=== PATIENT | female | born 1955 | race Two or more races ===

== ENCOUNTER → 2025-02-11 | Outpatient (CLI) | payer MEDICARE, SELFPAY ==
--- NOTE | 2025-02-11 08:45 | XR_ITS ---
Examination: Screening digital mammography, bilateral Computer aided detection 3-D breast Tomosynthesis, bilateral Date and time of exam: February 11, 2025, 0823 hours, compared to mammograms dating to June 26, 2021 Indication: Screening Technique: Nonmagnified MLO, CC views of the breasts to been obtained, reconstructed from 3-D Tomosynthesis images. R2 computer aided detection program utilized for evaluation of suspicious masses and/or abnormal calcifications. 3-D Tomosynthesis images obtained. Findings: The breasts are heterogeneously dense, which may obscure small masses The implants appear intact Grouped segmental calcifications outer left breast anterior depth No suspicious masses Impression: BI-RADS Category 0: Incomplete: Need additional imaging evaluation Recommend follow-up magnification spot compression views of grouped segmental calcifications outer left breast anterior depth as well as left breast sonography to complete the
== END | disposition home or self-care (01) ==
PROVIDERS: PCP Physician Assistant; Referring Provider Physician Assistant; Visit Provider Physician Assistant
DX: Z12.31 Encounter for screening mammogram for malignant neoplasm of breast (principal); R92.8 Other abnormal and inconclusive findings on diagnostic imaging of breast; R92.1 Mammographic calcification found on diagnostic imaging of breast
CPT/HCPCS: 77063; 77067